=== PATIENT | female | born 2000 | race Caucasian/White ===

== ENCOUNTER 2022-07-22 09:47 | Emergency (ER) | payer OTHER ==
[~2022-07-22] VITALS: Ht 170.2 cm; Wt 61.7 kg
[2022-07-22] MEDS ORDERED: IPRATROPIUM HFA INHALER 12.9 GRAMS (ATROVENT HFA) INH ONE (10:25)
[2022-07-22] MEDS ORDERED: SODIUM CHLORIDE IV ONE (10:30)
[2022-07-22] MEDS ORDERED: ALBUTEROL 90 MCG/ACT 8GM HFA INHALER INH ONE (10:45)
[2022-07-22 11:14] LABS: RSV AMPLIFICATION NEGATIVE (NEGATIVE)
[2022-07-22 11:56] LABS: BASO # 0.1 10^3/uL (0.0-0.2); BASO % 0.8 % (0.0-1.0); EOS # 0.2 10^3/uL (0.0-0.5); EOS % 1.6 % (0.0-3.0); HEMATOCRIT 45.8 % (36.0-47.0); HEMOGLOBIN 16.6 g/dl (12.0-15.5); LYMPH # 2.4 10^3/uL (1.5-5.0); LYMPH % 26.1 % (24.0-44.0); MEAN CORPUSCULAR HGB CONC 36.2 g/dl (32.0-36.5); MEAN CORPUSCULAR VOLUME 88.2 fl (80.0-96.0); MONO # 0.8 10^3/uL (0.0-0.8); MONO % 8.8 % (2.0-8.0); NEUTROPHILS # 5.8 10^3/uL (1.5-8.5); NEUTROPHILS % 62.4 % (36.0-66.0); PLATELET COUNT, AUTOMATED 273 10^3/uL (150-450); RED BLOOD COUNT 5.19 10^6/uL (4.00-5.40); WHITE BLOOD COUNT 9.2 10^3/uL (4.0-10.0)
[2022-07-22] MEDS ORDERED: MEDR4PAK PO (12:13)
[2022-07-22] MEDS ORDERED: PROAAER10 INH (12:16)
[2022-07-22 12:23] LABS: ERYTHROCYTE SEDIMENTATION RATE 7 mm/hr (0-20)
[2022-07-22 12:28] LABS: ALBUMIN 4.5 GM/DL (3.2-5.2); BILIRUBIN,DIRECT 0.2 MG/DL (0.0-0.2); C REACTIVE PROTEIN QUANTITATIV 0.92 MG/DL (0.00-0.30)
[2022-07-22] MEDS ORDERED: MUCI600T31 PO (12:42)
[2022-07-22 13:17] VITALS: BP 140/70
== END 2022-07-22 13:26 | disposition home or self-care (01) ==
LOC: M ED 09:47
DX: J20.9 Acute bronchitis, unspecified (principal); B34.8 Other viral infections of unspecified site; Z20.822 Contact with and (suspected) exposure to COVID-19